=== PATIENT | male | born 1985 | race Caucasian/White ===

== ENCOUNTER → 2020-07-22 | Outpatient (CLI) | payer OTHER ==
[~2020-07-22] MED LIST: BENTYL 20MG TAB20 MG PO; FARXIGA10 MG PO; GLUCOPHAGE500 MG PO; LEVEMIR 10100 UNITS/ SQ; LORTAB 5-325 M1 EACH PO; ZOFRAN ODT 4 MG4 MG SL
[2020-07-22 10:40] LABS: BUN/CREATININE RATIO 16 (0-10)
[2020-07-23 06:45] LABS: CREATININE, URINE 170.5 mg/dL (Not Estab.)
[2020-07-24 11:11] LABS: CHOLESTEROL, TOTAL 170 mg/dL (100-199); HDL SIZE 8.4 nm (>=9.2); HDL-C 41 mg/dL (>39); LARGE HDL-P 2.2 umol/L (>=4.8); LARGE VLDL-P 10.4 nmol/L (<=2.7); LDL SIZE 20.5 nm (>20.5); LDL SIZE 20.5 nm (>=20.8); LDL-C 98 mg/dL (0-99); LDL-P 1061 nmol/L (<1000); LP-IR SCORE 89 (<=45); SMALL LDL-P 511 nmol/L (<=527); TRIGLYCERIDES 177 mg/dL (0-149); VLDL SIZE 56.8 nm (<=46.6)
== END ==
LOC: LAB 09:14
PROVIDERS: Emergency Medicine
DX: E11.65 Type 2 diabetes mellitus with hyperglycemia (principal); K21.9 Gastro-esophageal reflux disease without esophagitis; K29.70 Gastritis, unspecified, without bleeding
CPT/HCPCS: 36415; 80053; 82043; 82570

== ENCOUNTER → 2020-07-25 | Outpatient (CLI) | payer OTHER | LOC: KOH-I 07-03 16:00 | DX: M54.2 Cervicalgia (principal); M13.811 Other specified arthritis, right shoulder; M50.220 Other cervical disc displacement, mid-cervical region, unspecified level; M48.02 Spinal stenosis, cervical region | CPT/HCPCS: 72141 ==

== ENCOUNTER → 2021-04-11 | Outpatient (CLI) | payer OTHER ==
[2021-04-11 10:20] LABS: HEMOGLOBIN 16.8 gm/dl (14.0-17.5); RED BLOOD COUNT 5.66 M/UL (4.20-5.50); WHITE BLOOD COUNT 7.5 K/UL (4.5-11.0)
[2021-04-11 10:48] LABS: BUN/CREATININE RATIO 15 (0-10)
[2021-04-12 10:14] LABS: CREATININE, URINE 155.3 mg/dL (Not Estab.)
[2021-04-13 13:13] LABS: CHOLESTEROL, TOTAL 182 mg/dL (100-199); HDL SIZE 8.4 nm (>=9.2); HDL-C 41 mg/dL (>39); LARGE HDL-P 2.4 umol/L (>=4.8); LARGE VLDL-P 10.9 nmol/L (<=2.7); LDL SIZE 20.6 nm (>20.5); LDL SIZE 20.6 nm (>=20.8); LDL-C 107 mg/dL (0-99); LDL-P 1249 nmol/L (<1000); LP-IR SCORE 89 (<=45); SMALL LDL-P 663 nmol/L (<=527); TRIGLYCERIDES 198 mg/dL (0-149); VLDL SIZE 57.5 nm (<=46.6)
== END ==
LOC: LAB 09:38
PROVIDERS: Emergency Medicine
DX: K29.70 Gastritis, unspecified, without bleeding (principal); K30 Functional dyspepsia; E11.65 Type 2 diabetes mellitus with hyperglycemia
CPT/HCPCS: 36415; 80053; 80061; 82043; 82570; 83704; 84443; 84550; 85025

== ENCOUNTER 2021-09-09 17:38 | Emergency (ER) | payer BC ==
[2021-09-09 18:13] LABS: HEMOGLOBIN 16.2 gm/dl (14.0-17.5); RED BLOOD COUNT 5.46 M/UL (4.20-5.50)
[2021-09-09] MEDS ORDERED: ZOFRAN ODT 4 MG4 MG PO (19:56)
[2021-09-09] MEDS ORDERED: PERCOCET 5-3251 EACH PO (19:56)
[2021-09-09] MEDS ORDERED: FLOMAX 0.4 MG0.4 MG PO (19:58)
== END 2021-09-09 20:35 | disposition home or self-care (01) ==
LOC: ER1 17:38
PROVIDERS: Physician Assistant
DX: N13.2 Hydronephrosis with renal and ureteral calculous obstruction (principal); N28.9 Disorder of kidney and ureter, unspecified; E11.9 Type 2 diabetes mellitus without complications; Z87.442 Personal history of urinary calculi
CPT/HCPCS: 80053; 81001; 85025; 96374; 96375; 99284; J1885; J2270; J2405

== ENCOUNTER 2021-12-27 10:39 | Emergency (ER) | payer BC ==
[~2021-12-27 10:39] MED LIST changes: +FLOMAX 0.4 MG0.4 MG PO; +PERCOCET 5-3251 EACH PO; +ZOFRAN ODT 4 MG4 MG PO
[2021-12-27 11:23] LABS: HEMOGLOBIN 15.5 gm/dl (14.0-17.5); RED BLOOD COUNT 5.46 M/UL (4.20-5.50); WHITE BLOOD COUNT 6.9 K/UL (4.5-11.0)
[2021-12-27 11:51] LABS: BUN/CREATININE RATIO 18 (0-10)
[2021-12-27] MEDS ORDERED: FLORASTOR250 MG PO (13:20)
[2021-12-27] MEDS ORDERED: ZOFRAN 4 MG TAB4 MG PO (13:20)
== END 2021-12-27 13:30 | disposition home or self-care (01) ==
LOC: ER1 10:39
PROVIDERS: Physician Assistant Medical
DX: R10.84 Generalized abdominal pain (principal); R11.2 Nausea with vomiting, unspecified; R19.7 Diarrhea, unspecified; R10.813 Right lower quadrant abdominal tenderness; R10.814 Left lower quadrant abdominal tenderness; E11.9 Type 2 diabetes mellitus without complications
CPT/HCPCS: 80053; 81001; 83605; 85025; 96374; 99284; J2405; Q9967